=== PATIENT | female | born 1975 | race Caucasian/White ===

== ENCOUNTER 2016-09-26 13:55 | Outpatient (CLI) | payer MEDICAID | END 2016-09-26 13:56 | disposition home or self-care (01) | DX: R53.83 Other fatigue (principal); M25.50 Pain in unspecified joint ==

== ENCOUNTER 2016-10-02 08:00 | Outpatient (CLI) | payer MEDICAID | END 2016-10-02 08:01 | disposition home or self-care (01) | DX: D72.829 Elevated white blood cell count, unspecified (principal) ==